=== PATIENT | male | born 1950 | race Caucasian/White ===

== ENCOUNTER 2016-12-08 11:29 | Outpatient (CLI) | payer OTHER ==
--- NOTE | 2016-12-08 14:55 | ULT ---
RIGHT LOWER EXTREMITY VENOUS DOPPLER ULTRASOUND: Date: 12/08/16 HISTORY: Right lower extremity pain and swelling x2 weeks. COMPARISON: None. TECHNIQUE: Chavez scale, color flow, Doppler imaging, and spectral waveform analysis performed of the right lower extremity venous system. FINDINGS: There is compressibility, presence of flow, and augmentation in the common femoral vein, femoral vei n, and popliteal vein. There is flow in the profunda vein, greater saphenous vein, and posterior tib ial vein. Varicose veins are noted along the medial calf. IMPRESSION: 1. Varicose veins along the medial calf. 2. No evidence of deep vein thrombus of the right lower extremity. POS: [facility]
--- NOTE | 2016-12-09 07:37 | RAD ---
RIGHT KNEE FOUR VIEWS: History: Pain x 3 years. Comparison: None. FINDINGS: Small suprapatellar effusion. Mild loss of medial and lateral compartment joint space height. There is chondrocalcinosis in the medial and lateral compartment. No fractures or malalignment. IMPRESSION: 1. Small nonspecific suprapatellar effusion. 2. Chondrocalcinosis involving the medial and lateral compartment. POS: [facility]
== END 2016-12-08 11:30 | disposition home or self-care (01) ==
LOC: NAV RAD 11:29
PROVIDERS: ATTEND Internal Medicine
DX: I83.91 Asymptomatic varicose veins of right lower extremity (principal); F51.01 Primary insomnia; M17.11 Unilateral primary osteoarthritis, right knee; M25.461 Effusion, right knee; M11.261 Other chondrocalcinosis, right knee

== ENCOUNTER 2019-09-01 10:03 | Emergency (ER) | payer OTHER ==
[~2019-09-01 10:03] MED LIST: Iopamidol 370 76% 100 ML VIAL ONE
[2019-09-01] MEDS ORDERED: Acetaminophen 500 MG TAB ONE (10:22)
[2019-09-01 11:03] LABS: ALT (SGPT) 52 U/L (8-55); AST (SGOT) 45 U/L (5-34); Albumin 3.4 g/dL (3.4-4.8); Alkaline Phosphatase 164 U/L (40-110); Anion Gap 18 mmol/L (10-20); BUN (Urea Nitrogen) 14 mg/dL (8.4-25.7); Bilirubin, Total 0.7 mg/dL (0.2-1.2); Calc. Creatinine Clearance 0 mL/min (70-130); Calcium 9.1 mg/dL (7.8-10.44); Carbon Dioxide 22 mmol/L (23-31); Chloride 99 mmol/L (98-107); Estimated GFR-MDRD Greater than 90; Globulin 3.4 g/dL (2.4-3.5); Glucose 124 mg/dL (80-115); Potassium 3.7 mmol/L (3.5-5.1); Protein, Total 6.8 g/dL (5.8-8.1); Sodium 135 mmol/L (136-145)
[2019-09-01 11:07] LABS: Band 4 % (5-11); Hemoglobin 13.5 g/dL (14.0-18.0); Lymphocytes 6 % (21-51); MDiff Complete? YES; Mean Corpuscular HGB CONC 32.1 g/dL (32.0-36.0); Mean Corpuscular Hemoglobin 29.6 pg (27.0-31.0); Mean Corpuscular Volume 92.1 fL (78.0-98.0); Mean Platelet Volume 7.2 fL (7.4-10.4); Monocytes 7 % (0-10); Neutrophil 82 % (42-75); Platelet Count 268 thou/uL (130-400); Platelet Morphology Comment Appears Adequate; RBC Distribution Width 12.8 % (11.5-14.5); Reactive Lymphocytes 1 % (0-10); Red Blood Cell (RBC) Count 4.56 mill/uL (4.70-6.10); White Blood Cell (WBC) Count 24.5 thou/uL (4.8-10.8)
--- NOTE | 2019-09-01 11:23 | RAD ---
XR Chest 1 View Portable HISTORY: Cough COMPARISON: None FINDINGS: The heart size normal. The aorta is tortuous. There is patchy consolidation in the right up per lobe. No pneumothoraces or pleural effusions are seen. IMPRESSION: Right lung pneumonia
[2019-09-01] MEDS ORDERED: cefTRIAXone\\ROCEPHIN 1 GM VIAL ONE (11:32)
[2019-09-01] MEDS ORDERED: Ibuprofen 800 MG TAB ONE (12:02)
--- NOTE | 2019-09-01 12:30 | CT ---
CT ABDOMEN AND PELVIS WITH IV CONTRAST: HISTORY: Right upper quadrant pain and fever. Vomiting. FINDINGS: The lung bases are unremarkable. No calcified gallstones are seen. The liver, spleen, pancreas and ad renal glands are normal. There is a 1.5 mm wedge-shaped hypodensity in the left renal cortex. A small amount of right perinephric fluid is seen. The right kidney is otherwise unremarkable. No free air, free fluid or lymphadenopathy is seen in the abdomen or pelvis. The small bowel loops ar e not abnormally dilated. There are vascular calcifications without evidence of aneurysmal dilatation of the abdominal aorta. There are degenerative changes in the spine. A fat-containing left inguinal hernia is present. IMPRESSION: Probable pyelonephritis. POS: [facility]
[2019-09-01 14:25] LABS: Bilirubin Moderate (Negative); Blood, Urine Trace (Negative); Glucose, Urine (Dipstick) 100 mg/dL (Negative); Leukocyte Negative (Negative); Nitrite Negative (Negative); Protein, Urine (Dipstick) 100 mg/dL (Neg-Trace); Urobilinogen > or = 8.0 mg/dL (Less than 2)
[2019-09-01 14:37] LABS: Clarity SL HAZY (Clear)
[2019-09-01 14:39] LABS: Squamous Epithelial 0-3 HPF (0-3)
== END 2019-09-01 15:08 | disposition home or self-care (01) ==
LOC: NAV ERS 10:03
DX: J18.9 Pneumonia, unspecified organism (principal); E86.0 Dehydration; R10.9 Unspecified abdominal pain; N40.0 Benign prostatic hyperplasia without lower urinary tract symptoms; Z87.891 Personal history of nicotine dependence
CPT/HCPCS: 51701; 71045; 74177; 80053; 81003; 81015; 83605; 83880; 84484; 85025; 87040; 87086; 96361; 96374; J0696; Q9967

== ENCOUNTER 2023-10-14 00:08 | Emergency (ER) | payer BC ==
[2023-10-14] MEDS ORDERED: Ketorolac Tromethamine 30 MG (1 mL) VIAL ONE (00:30)
[2023-10-14 00:46] LABS: #Basophils 0.1 thou/uL (0.0-0.2); #Eosinphils 0.1 thou/uL (0.0-0.7); #Lymphocytes 1.5 thou/uL (1.20-3.40); #Neutrophils 8.5 thou/uL (1.40-6.50); %Basophils 0.6 % (0.0-1.0); %Eosinophils 1.2 % (0.0-10.0); %Lymphocytes 13.4 % (21.0-51.0); %Neutrophils 75.9 % (42.0-75.0); Hematocrit 40.1 % (42.0-52.0); Hemoglobin 13.4 g/dL (14.0-18.0); Mean Corpuscular HGB CONC 33.3 g/dL (32.0-36.0); Mean Corpuscular Hemoglobin 30.5 pg (27.0-31.0); Mean Corpuscular Volume 91.6 fl (78.0-98.0); Mean Platelet Volume 7.3 fL (7.4-10.4); Platelet Count 259 10x3/uL (130-400); RBC Distribution Width 11.9 % (11.5-14.5); Red Blood Cell (RBC) Count 4.38 mill/uL (4.70-6.10); White Blood Cell (WBC) Count 11.2 10x3/uL (4.8-10.8)
[2023-10-14 01:02] LABS: ALT (SGPT) 12 U/L (8-55); AST (SGOT) 16 U/L (5-34); Albumin 3.9 g/dL (3.4-4.8); Alkaline Phosphatase 92 U/L (40-110); Anion Gap 14 mmol/L (10-20); BUN (Urea Nitrogen) 15 mg/dL (8.4-25.7); Bilirubin, Total 0.5 mg/dL (0.2-1.2); Calc. Creatinine Clearance 0 mL/min (70-130); Calcium 9.1 mg/dL (7.8-10.44); Carbon Dioxide 25 mmol/L (23-31); Chloride 103 mmol/L (98-107); Estimated GFR 92; Globulin 3.1 g/dL (2.4-3.5); Glucose 115 mg/dL (83-110); Potassium 4.3 mmol/L (3.5-5.1); Sodium 138 mmol/L (136-145)
[2023-10-14 01:35] LABS: Bilirubin Negative (Negative); Blood, Urine Trace (Negative); CAUTI Indications for Culture Pelvic or flank pain; Clarity Clear (Clear); Glucose, Urine (Dipstick) Negative (Negative); Ketone, Urine Negative (Negative); Leukocyte Negative (Negative); Nitrite Negative (Negative); Protein, Urine (Dipstick) Negative (Neg-Trace); RBC/HPF 0-3 HPF (0-3); Squamous Epithelial 0-3 HPF (0-3); Urobilinogen 0.2 mg/dL (Less than 2); WBC/HPF 0-3 HPF (0-3); pH, Urine 5.5 (5.0-9.0)
[2023-10-14 01:36] LABS: Urine Culture Reflex No No
[2023-10-14] MEDS ORDERED: Cyclobenzaprine 10 MG TAB ONE (01:45)
== END 2023-10-14 02:00 | disposition home or self-care (01) ==
LOC: NAV ERS 00:08
DX: R10.9 Unspecified abdominal pain (principal); Z87.891 Personal history of nicotine dependence
CPT/HCPCS: 51701; 74176; 80053; 81001; 85025; 96374; J1885

== ENCOUNTER 2024-08-13 09:46 | Outpatient (CLI) | payer OTHER | END 2024-08-13 09:47 | disposition home or self-care (01) | LOC: NAV RAD 09:46 | PROVIDERS: ATTEND Nurse Practitioner Family | DX: R06.02 Shortness of breath (principal); R91.8 Other nonspecific abnormal finding of lung field | CPT/HCPCS: 71046 ==

== ENCOUNTER 2024-09-03 16:09 | Outpatient (CLI) | payer OTHER | END 2024-09-03 16:10 | disposition home or self-care (01) | LOC: NAV RAD 16:09 | PROVIDERS: ATTEND Student in an Organized Health Care Education/Training Program | DX: M25.512 Pain in left shoulder (principal); M25.511 Pain in right shoulder; M19.012 Primary osteoarthritis, left shoulder; M19.011 Primary osteoarthritis, right shoulder ==